=== PATIENT | female | born 1990 | race Caucasian/White ===

== ENCOUNTER 2019-02-03 12:02 | Emergency (ER) | payer OTHER ==
[~2019-02-03] VITALS: Ht 160 cm; Wt 103.2 kg
[2019-02-03] MEDS ORDERED: metoclopramide 5 mg/ml inj IV ONE (14:50)
[2019-02-03] MEDS ORDERED: fentaNYL/PF 50MCG/1 ML 2ML syringe IV ONE (14:50)
[2019-02-03] MEDS ORDERED: diphenhydrAMINE 50 mg/ml inj IV ONE (14:50)
[2019-02-03] MEDS ORDERED: ketorolac trometh. 30mg/ml inj. IV ONE (14:50)
[2019-02-03] MEDS ORDERED: normal saline 1000ML IV soln IVB ONE (14:50)
[2019-02-03 15:17] LABS: BASOPHILS # (AUTO) 0.1 X10'3 (0-0.2); BASOPHILS % (AUTO) 0.4 % (0-1); EOSINOPHILS # (AUTO) 0.2 X10'3 (0-0.9); EOSINOPHILS % (AUTO) 1.5 % (0-6); HEMATOCRIT 41.1 % (35.0-45.0); LYMPHOCYTES # (AUTO) 2.3 X10'3 (1.1-4.8); MEAN CORPUSCULAR HEMOGLOBIN 31.8 PG (27.0-31.0); MEAN CORPUSCULAR VOLUME 93.6 FL (78-98); MEAN PLATELET VOLUME 6.7 FL (7.4-10.4); MONOCYTES # (AUTO) 0.6 X10'3 (0-0.9); MONOCYTES % (AUTO) 5.2 % (2-12); NEUTROPHILS # (AUTO) 8.9 X10'3 (1.8-7.7); NEUTROPHILS % (AUTO) 73.9 % (42-75); PLATELET COUNT 328 X10'3 (140-440); RED BLOOD COUNT 4.39 X10'6 (4.20-5.60); RED CELL DISTRIBUTION WIDTH 12.8 % (11.5-14.5)
--- NOTE | 2019-02-03 15:28 | NUR ---
ultrasound at bedside
[2019-02-03 15:35] LABS: ALANINE AMINOTRANSFERASE 37 U/L (12-78); ALBUMIN/GLOBULIN RATIO 1.1 (1.1-1.5); ALKALINE PHOSPHATASE 58 IU/L (46-116); ANION GAP 9 (8-16); ASPARTATE AMINO TRANSFERASE 26 U/L (10-37); BILIRUBIN,TOTAL 0.4 MG/DL (0.1-1.0); BLOOD UREA NITROGEN 6 MG/DL (7-18); BUN/CREATININE RATIO 7.6 (6.6-38.0); CALCIUM 9.3 MG/DL (8.5-10.1); CHLORIDE 103 MMOL/L (99-107); CREATININE 0.79 MG/DL (0.40-0.90); GLUCOSE 82 MG/DL (70-104); POTASSIUM 4.3 MMOL/L (3.5-5.1); SODIUM 140 MMOL/L (135-145); TOTAL CARBON DIOXIDE 28.1 MMOL/L (24-32); TOTAL PROTEIN 7.7 G/DL (6.4-8.2); eGFR 87 ML/MIN
[2019-02-03] MEDS ORDERED: HYDR-3965 PO (16:07)
[2019-02-03 16:16] VITALS: BP 134/70
== END 2019-02-03 16:28 | disposition home or self-care (01) ==
LOC: ER 12:05
DX: R10.31 Right lower quadrant pain (principal); Z88.5 Allergy status to narcotic agent; Z88.6 Allergy status to analgesic agent; Z79.899 Other long term (current) drug therapy
CPT/HCPCS: 36415; 76856; 80053; 84145; 85025; 96374; 96375; 99284; J1200; J1885; J2765; J3010; J7030

== ENCOUNTER 2019-03-19 19:34 | Emergency (ER) | payer OTHER ==
[~2019-03-19] VITALS: Ht 160 cm; Wt 90.9 kg
[2019-03-19] MEDS ORDERED: LIDOcaine 1.5% w/epinephrine 1:200,000 5ml ampul IJ ONE (20:10)
[2019-03-19] MEDS ORDERED: LIDOcaine 1% W/epiNEPHrine 1:100,000 20ml vial IJ ONE (20:25)
[2019-03-19] MEDS ORDERED: L. R1CAP4 PO (20:48)
[2019-03-19] MEDS ORDERED: AMOX-580 PO (20:48)
[2019-03-19] MEDS ORDERED: TRAM50TA2 PO (21:22)
[2019-03-19 22:14] VITALS: BP 127/99
== END 2019-03-19 22:10 | disposition home or self-care (01) ==
LOC: ER 19:35
DX: S62.637A Displaced fracture of distal phalanx of left little finger, initial encounter for closed fracture (principal); S61.257A Open bite of left little finger without damage to nail, initial encounter; R00.2 Palpitations; Z88.6 Allergy status to analgesic agent; Z79.899 Other long term (current) drug therapy; W54.0XXA Bitten by dog, initial encounter; Y93.89 Activity, other specified; Y92.89 Other specified places as the place of occurrence of the external cause; Y99.8 Other external cause status
CPT/HCPCS: 12001; 29130; 73140; 99283

== ENCOUNTER 2019-11-13 12:23 | Emergency (ER) | payer OTHER ==
[~2019-11-13] VITALS: Ht 160 cm; Wt 86.4 kg
[~2019-11-13 12:23] MED LIST: L. R1CAP4 PO
[2019-11-13 12:34] VITALS: BP 132/96
[2019-11-13] MEDS ORDERED: HYDROcodone/acetaminophen 5mg/325mg tablet PO ONE (13:15)
[2019-11-13] MEDS ORDERED: IBUP-1985 PO (13:24)
== END 2019-11-13 13:38 | disposition home or self-care (01) ==
LOC: ER 12:24
DX: S80.02XA Contusion of left knee, initial encounter (principal); Z88.5 Allergy status to narcotic agent; W10.8XXA Fall (on) (from) other stairs and steps, initial encounter; Y93.89 Activity, other specified; Y92.89 Other specified places as the place of occurrence of the external cause; Y99.9 Unspecified external cause status
CPT/HCPCS: 29505; 73564; 99284

== ENCOUNTER 2020-05-16 20:17 | Emergency (ER) | payer OTHER ==
[~2020-05-16] VITALS: Ht 160 cm; Wt 93.0 kg
[~2020-05-16 20:17] MED LIST changes: +IBUP-1985 PO
[2020-05-16 20:31] VITALS: BP 140/97
[2020-05-16] MEDS ORDERED: ketorolac trometh inj. 60 MG/2 ML VIAL IM ONE (21:55)
[2020-05-16] MEDS ORDERED: DIAZ5TAB PO (22:21)
[2020-05-17] MEDS ORDERED: DIAZ5TAB PO (17:04)
== END 2020-05-16 22:31 | disposition home or self-care (01) ==
LOC: ER 20:17
DX: M25.552 Pain in left hip (principal); Z60.2 Problems related to living alone; Z88.2 Allergy status to sulfonamides; Z88.5 Allergy status to narcotic agent; Z79.899 Other long term (current) drug therapy
CPT/HCPCS: 96372; 99283; J1885

== ENCOUNTER 2020-08-20 08:59 | Emergency (ER) | payer OTHER ==
[~2020-08-20] VITALS: Ht 160 cm; Wt 97.7 kg
[~2020-08-20 08:59] MED LIST changes: +DIAZ5TAB PO
--- NOTE | 2020-08-20 09:38 | NUR ---
PATIENT REORTS FALL IN OCTOBER 2019 AT WORK : PER PATIENT: DX: "BULGE L5,S1" & "BURSITIS OF LEFT HIP" NOW: LEFT THIGH APPEARS LARGER THAN RIGHT : STRONG REGULAR BILATERAL PEDAL PULSES DR GREGORIO IN ROOM
[2020-08-20] MEDS ORDERED: ketorolac trometh. 30mg/ml inj. IM ONE (09:45)
--- NOTE | 2020-08-20 10:14 | NUR ---
VASCULAR STUDY IN PROGRESS
[2020-08-20] MEDS ORDERED: ORPH100T2 PO (10:38)
[2020-08-20] MEDS ORDERED: HYDR-3973 PO (10:38)
[2020-08-20 10:51] VITALS: BP 126/81
== END 2020-08-20 10:50 | disposition home or self-care (01) ==
LOC: ER 09:00
DX: G89.29 Other chronic pain (principal); M25.552 Pain in left hip; Z88.6 Allergy status to analgesic agent; Z88.8 Allergy status to other drugs, medicaments and biological substances; Z79.899 Other long term (current) drug therapy
CPT/HCPCS: 93971; 96372; 99284; J1885

== ENCOUNTER 2020-11-09 10:11 | Emergency (ER) | payer OTHER ==
[~2020-11-09] VITALS: Ht 160 cm; Wt 81.8 kg
[~2020-11-09 10:11] MED LIST changes: +ORPH100T2 PO
[2020-11-09] MEDS ORDERED: oxyCODONE/APAP 5-325mg tablet PO ONE (10:55)
[2020-11-09] MEDS ORDERED: fentaNYL/PF 50MCG/1 ML 2ML syringe IV ONE ×3 (11:35→16:40)
[2020-11-09] MEDS ORDERED: ondansetron/PF 4mg/2ml inj IV ONE (11:35)
--- NOTE | 2020-11-09 12:48 | NUR ---
pt back from mri
--- NOTE | 2020-11-09 14:45 | NUR ---
[facility] STATES NEURO SURGEON IS UNAVAIL FOR 2-3 HRS FOR CONSULT. JEANETTE ARTIS & RN MADE AWARE.
--- NOTE | 2020-11-09 15:18 | NUR ---
pt c/o lower back pain 01/22, "the fentanyl helps", pt is resting quietly on gurney, resp even and unlabored, skin p/w/d
--- NOTE | 2020-11-09 17:00 | NUR ---
pt continues to rest quietly on gurney
[2020-11-09] MEDS ORDERED: diazepam inj 5 MG/ML inj. IV ONE (20:55)
[2020-11-09] MEDS ORDERED: SPIR100T5 PO (23:50)
[2020-11-09] MEDS ORDERED: METF500T PO (23:51)
[2020-11-09] MEDS ORDERED: CETI-90 PO (23:51)
[2020-11-09] MEDS ORDERED: DULO-31 PO (23:52)
[2020-11-09] MEDS ORDERED: MELO-102 PO (23:52)
--- NOTE | 2020-11-10 02:43 | NUR ---
PT TRANSFER DENIED BY [facility]UIZ, AND [facility] DUE TO BEING AT FULL CAPACITY. AWAITING BED AVAILABILITY FROM [facility].
[2020-11-10 03:10] VITALS: BP 115/81
[2020-11-10] MEDS ORDERED: fentaNYL/PF 50MCG/1 ML 2ML syringe IV ONE ×2 (04:20→05:30)
--- NOTE | 2020-11-10 05:51 | NUR ---
PT ACCEPTED AT [facility] BY DR. THOMAS. REACH AT BESIDE TO TRANSPORT.
== END 2020-11-10 06:15 | disposition short-term general hospital (02) ==
LOC: ER 10:12
DX: M51.26 Other intervertebral disc displacement, lumbar region (principal); Z20.822 Contact with and (suspected) exposure to COVID-19; G89.29 Other chronic pain; Z60.2 Problems related to living alone; Z88.5 Allergy status to narcotic agent; Z79.899 Other long term (current) drug therapy
CPT/HCPCS: 72148; 87635; 96374; 96375; 96376; 99291; 99292; C9803; J2405; J3010; J3360